=== PATIENT | female | born 1950 | race Two or more races ===

== ENCOUNTER → 2024-03-09 | Outpatient (CLI) | payer MEDICARE, OTHER ==
[2024-03-09 17:08] LABS: INR 0.9 (<1.2); Partial Thromboplastin Time 23.9 sec (22.0-30.0); Prothrombin Time 10.1 sec (10.0-12.5)
[2024-03-09 18:43] LABS: HCT 48.5 % (37.2-46.3); HGB 16.2 g/dL (12.0-15.0); MCH 28.7 pg (27.0-32.0); MCHC 33.4 g/dL (32.0-37.0); Mean Platelet Volume 8.9 FL (9.5-12.2); NRBC Per 100 WBC 0 X 10*3/uL (0.00-0.01); Platelet Count 297 X 10*3/uL (140-440); RBC 5.64 X 10*6/uL (4.10-5.20); RDW 13.3 % (11.5-14.5); WBC 7.33 X 10*3/uL (4.50-10.00)
[2024-03-10 03:44] LABS: ALT 18 U/L (8-44); AST 18 U/L (13-35); Albumin 4.3 g/dL (3.8-4.9); Albumin/Globulin Ratio 1.72 Ratio (1.60-3.17); Alkaline Phosphatase 60 U/L (41-126); BUN/Creat Ratio 25.86 Ratio (12.00-20.00); Blood Urea Nitrogen 18.1 mg/dL (9.0-27.0); Calcium 9.2 mg/dL (8.7-10.3); Carbon Dioxide 23.2 mmol/L (21.6-31.8); Chloride 101 mmol/L (96-109); Globulin 2.5 g/dL (1.6-3.3); Glucose 134 mg/dL (70-110); Potassium 3.9 mmol/L (3.5-5.5); Sodium 139 mmol/L (135-145); Total Bilirubin 0.6 mg/dL (0.3-1.2); Total Protein 6.8 g/dL (6.2-8.2)
[2024-03-10 04:19] LABS: Appearance,Urine Turbid (Clear); Bilirubin,Urine Negative (Negative); Blood,Urine Negative (Negative); Color,Urine Yellow (Yellow); Ketones,Urine Negative (Negative); Nitrite,Urine Negative (Negative); PH, Urine 5.5; Urobilinogen,Urine 0.2 E.U./DL
[2024-03-10 04:30] LABS: Bacteria,Urine None Seen (None Seen)
== END | disposition home or self-care (01) ==
LOC: LABPAT 03-03 14:43
PROVIDERS: ATTEND Orthopaedic Surgery
DX: Z01.812 Encounter for preprocedural laboratory examination (principal); M16.11 Unilateral primary osteoarthritis, right hip; Z22.322 Carrier or suspected carrier of Methicillin resistant Staphylococcus aureus
CPT/HCPCS: 80053; 81001; 85027; 85610; 85730; 86850; 86900; 86901; 87070; 87086

== ENCOUNTER 2024-03-16 08:59 | Day surgery (SDC) | payer MEDICARE, OTHER ==
[2024-03-15] MEDS: GABAPENTIN 300 MG CAP PO PRN (08:22)
[2024-03-15] MEDS: ACETAMINOPHEN TAB 500 MG TAB PO PRN (08:22)
[2024-03-15] MEDS: MELOXICAM 7.5 MG TAB PO PRN (08:23)
[2024-03-15] MEDS: IV FLUID CONTINUATION 1,000 ML IV ONE ×3 (08:30→12:05)
[2024-03-15 08:35] LABS: Glucose,Whole Blood 127 mg/dL (70-110)
[2024-03-15] MEDS: fentaNYL (PF) 50 MCG/ML 2 ML AMP IVP ONE (08:37)
[2024-03-15] MEDS: MIDAZOLAM 2 MG/2 ML VIAL IVP ONE (08:37)
[2024-03-15] MEDS: ONDANSETRON 4 MG/2 ML VIAL IVP ONE (08:45)
--- NOTE | 2024-03-15 08:48 | P.ANPRN ---
Procedure Note - Anesthesia - Nerve Block Performed Right Derick Single Time Out Performed: Yes Date of Procedure: 03/15/24 Procedure Start Time: 08:36 Procedure Stop Time: 08:43 Location of Patient: PreOp Indication: Acute Post-Operative Pain, Requested by Surgeon Sedation Type: Sedate with meaningful contact maintained Preparation: Sterile Prep Position: Supine Needle Types: Pajunk Needle Gauge: 21 Ultrasound used to visualize needle placement: Yes Ultrasound used to observe medication spread: Yes Injectate: 0.5% Ropivacaine (see comment for volume) (15 ml + lidocaine 1% with epi 1/200 K 15 ml) Blood Aspirated: No Pain Paresthesia on Injection Noted: No Resistance on Injection: Normal Image Stored and Saved: Yes Events: Uneventful and Well Tolerated
[2024-03-15] MEDS: LACTATED RINGERS 1,000 ML IV SCH (08:59)
[2024-03-15] MEDS: ceFAZolin 1,000 MG in SODIUM CHLORIDE 0.9% 1,000 ML IRRIGATION ONE (09:20)
[2024-03-15] MEDS: ROPIVACAINE 5 MG/ML 30 ML VIAL MISCELLANE ONE ×2 (09:36→10:29)
--- NOTE | 2024-03-15 10:35 | P.OP ---
Date of Procedure: 03/15/24 Preoperative Diagnosis: Severe osteoarthritis right hip Postoperative Diagnosis: Severe arthritis right hip Procedure(s) Performed: Right total hip arthroplasty with a direct anterior approach Implants: [employer] Polarstem standard size 1with a collar [employer] R3, 3 hole hemispherical acetabular shell, 48 mm [employer] Reflection 6.5 mm cancellus screw, 20 mm 2 [employer] R3, XLPE 20 acetabular liner [employer]hew Oxinium femoral head 32 mm, -3 All components were press-fit. The articulation is Oxinium on polyethylene. Anesthesia: spinal Surgeon: Festus Grigsby [employer] Building Materials Designer #1: Alisson Sandoval Estimated Blood Loss (ml): 300 Pathology: none sent Condition: stable Disposition: PACU Indications for Procedure: After failure of conservative treatment we discussed the surgical and nonsurgical treatment options at length. Patient wishes to proceed with a total hip arthroplasty with a direct anterior approach. Complications specific to this procedure were discussed at length, including but not limited to infection, leg length discrepancy, dislocation, nerve injury, and fracture. Covid-19 was also discussed at length with the patient, and they are aware of the current policies and procedures. The patient was given the option of delaying surgery, but they elect to proceed knowing these risks. Patient is aware of all these complications and informed consent was obtained Operative Findings: The operative findings are consistent with severe osteoarthritis of the right hip Description of Procedure: The patient was seen and evaluated in the preoperative area and the consent was reviewed. The operative site was marked with a skin marker. The patient verified the procedure and operative site. A JEANNA block was placed by anesthesia in the preoperative area. The patient was then brought to the operating room and given preoperative antibiotics intravenously. 1 g of Tranexamic acid was also given intravenously. A spinal anesthetic was administered by the anesthesia department. The patient was then placed on the Panaca table with the bony prominences well-padded. The hip area was then prepped with a ChloraPrep solution and draped in the usual sterile fashion. A universal timeout was then performed, which confirmed the patient's name, surgical site, ALLERGIES, and procedure being performed on the consent. Next the incision site was located at 1 cm distal and 4 cm lateral to the anterior superior iliac spine. The skin and subcutaneous tissues were sharply incised. Incision was carefully dissected down to the fascia overlying the tensor fascia pablo muscle. This fascia was then incised in line with the muscle fibers. Care was taken to stay laterally in order to avoid injuring the lateral femoral cuta neous nerve. Next, using blunt finger dissection, the tensor fascia pablo muscle was dissected off its investing fascia. The muscle was then carefully retracted laterally with a cobra retractor over the lateral neck of the femur. Next, the circumflex vessels were identified and cauterized using the Aquamantis device. The anterior hip capsule was then exposed. The capsule was then opened and an inverted T fashion. The retractors were then placed intracapsularly. The retractors were maintained intracapsular throughout the procedure. The proximal femur was then visualized. Fluoroscopic x-rays were then taken in order to evaluate the preoperative leg lengths. A small amount of traction was placed on the leg. The femoral neck was then osteotomized at the appropriate level above the lesser trochanter. A small wedge of bone was then removed from the remaining femoral head. Next, using a corkscrew the femoral head was removed from the acetabulum. On gross visual inspection, the femoral head had complete loss of articular cartilage and multiple periarticular osteophytes. The femoral head was then measured. Attention was then turned to the acetabulum. The acetabulum was exposed and any remaining labrum was excised. Sequential reaming of the acetabulum was performed using fluoroscopic guidance until there was a good bed of bleeding cancellus bone. When the appropriate size was reached, a trial was then placed. The position and fit of the trial was checked with fluoroscopy. The trial was then removed. Then, using fluoroscopic guidance, the final implant was impacted at 20 of anteversion and 40 of abduction, and fully seated in the acetabulum. 2 screws were then placed in the acetabulum. Again fluoroscopy was used to check position of the screws. Next, the liner was then impacted, with a 20 elevated liner located in the anterior superior quadrant. Component locking was confirmed. Attention was then directed to the femur. With the aid of the Panaca table, the femur was externally rotated to approximately 130, extended, and adducted under the opposite leg. A side hook was then placed under the proximal femur, and the side hook elevator was used to elevate the proximal femur while releasing the capsule. Retractors were then placed. A capsular release was performed, as well as a release of the conjoined tendon, which afforded excellent visuali zation of the proximal femur. Next, a box osteotome was used to lateralize the proximal femur. A scrap handler was then used to locate the femoral canal. Sequential broaching was then performed with appropriate size which afforded excellent fixation in the proximal femur. A trial was then placed with appropriate head and neck, and the hip was gently reduced with the aid of the Panaca table. Fluoroscopy was then used to check position of the components, as well as to evaluate the leg lengths and offset. The leg lengths and offset were measured as closely as possible to ensure stability of the hip. The hip was then gently dislocated and the trials were then removed. Final implants were then impacted and the hip was again reduced. Final fluoroscopic x-rays confirmed that the components were in anatomic position. The leg lengths and offset were measured and were found to coincide with the trial measurements. The hip was also taken through range of motion, and found to be stable. The hip was then copiously irrigated with antibiotic solution with pulsatile lavage. The hip was then irrigated with Irrisept solution. The soft tissues were then injected with a ropivacaine solution. A second dose of 1 g of Tranexamic acid was also given intravenously. The fascia was then closed with 2-0 strata fix suture. The subcutaneous tissue was closed with 3-0 Vicryl. The subcuticular tissue was closed with 3-0 strata fix suture. The skin was then closed with Exofin skin glue. After the glue and dried, and Optifoam silver impregnated dressing was applied. The patient was then transferred to the recovery room in stable condition. The construction management assistant RENATE Rizzo was required due to the complexity of surgery, and the need for skilled chef assistant for positioning, draping, exposure, retraction, and closure of the wound.
--- NOTE | 2024-03-15 10:57 | FL ---
EXAMINATION TYPE: FL guidance operating room, XR Hip Limited RT Intraoperative/procedural fluoroscopi c services were provided. Total fluoroscopy time is 1.08 seconds with a total of 3 submitted images t o PACS. Please see the operative/procedural note for further details. DAP: 3.7080 Gycm2
[2024-03-15] MEDS: HYDROmorphone 0.5 MG/0.5 ML SYRINGE IVP PRN ×2 (11:56→22:59)
[2024-03-15] MEDS: SODIUM CHLORIDE 0.9% 1,000 ML IV SCH (12:04)
[2024-03-15] MEDS: SODIUM CHLORIDE 0.9% 1,000 ML IV ONE ×2 (12:06→13:37)
--- NOTE | 2024-03-15 12:22 | XR ---
EXAMINATION TYPE: XR Hip Limited AP view RT DATE OF EXAM: 03/15/2024 Comparison: None Clinical History: 73-year-old female Status post hip surgery, assess surgical alignment Findings: Image shows placement of right total hip arthroplasty. Acetabular cup and femoral stem components of the prosthesis appear well seated without evidence periprosthetic fracture. Alignment grossly anatomi c. Small amount of soft tissue air related to recent operation. Impression: Uncomplicated postoperative appearance right total hip arthroplasty.
[2024-03-15] MEDS: GLYCOPYRROLATE 0.2 MG/ML 2 ML VIAL IVP STA (12:47)
[2024-03-15] MEDS: ONDANSETRON 4 MG/2 ML VIAL IVP PRN (14:04)
[2024-03-15] MEDS: DEXAMETHASONE SOD PHOSPHATE 4 MG/ML 1 ML VIAL IV ONE (15:19)
[2024-03-15] MEDS: METOPROLOL SUCCINATE (ER) 25 MG TAB.ER.24H PO SCH (15:19)
[2024-03-15] MEDS: HYDROcodone/APAP 7.5-325MG 1 EACH TAB PO PRN (16:47)
[2024-03-15 17:00] LABS: Glucose,Whole Blood 188 mg/dL (70-110)
[2024-03-15] MEDS: INSULIN ASPART (NovoLOG) 100 UNIT/ML VIAL SQ SCH (17:38)
[2024-03-15 19:59] VITALS: RESP 16
--- NOTE | 2024-03-15 20:10 | CONS ---
CONSULTATION REASON FOR CONSULTATION: Advice regarding diabetes mellitus and other medical issues requested by Orthopedics. HISTORY OF PRESENT ILLNESS: This 73-year-old woman with a past medical history of multiple problems including diabetes, hypertension, underwent right total hip joint arthroplasty. There is no history of fever, rigors, headache, loss of consciousness or seizures. PAST MEDICAL HISTORY: Diabetes mellitus, hypertension, DJD. Rest of history in chart is also reviewed. HOME MEDICATIONS: Reviewed and include hydrochlorothiazide. Rest of medications and doses reviewed. FAMILY HISTORY: History of DVT. SOCIAL HISTORY: No history of smoking or alcohol. REVIEW OF SYSTEMS: Fourteen-point review is negative except as mentioned earlier. PHYSICAL EXAMINATION: VITAL SIGNS: Pulse is 65, blood pressure ntd respirations 18. HEENT: Conjunctivae normal. NECK: No JVD. No thyromegaly. CARDIOVASCULAR: S1, S2. RESPIRATIONS: Breath sounds diminished at the bases. ABDOMEN: Soft, nontender. LEGS: Status post right total knee arthroplasty. NERVOUS SYSTEM: No focal deficits. LABORATORY DATA: Glucose 127. ASSESSMENT: 1. Status post right total knee arthroplasty. 2. Diabetes. 3. Hypertension. 4. History of DJD. 5. Family history of DVT. RECOMMENDATIONS AND DISCUSSION: This 73-year-old presented with multiple medical problems. We will monitor the patient closely. Continue the current medications. Monitor blood sugars closely. I would also recommend DVT prophylaxis with either Lovenox or Xarelto. We will continue to monitor. Guarded prognosis. Further recommendations to follow. MMODL / IJN: [id number] / PER
[2024-03-15 20:37] LABS: Glucose,Whole Blood 201 mg/dL (70-110)
[2024-03-15] MEDS: ASPIRIN 325 MG TAB PO SCH (21:09)
[2024-03-15] MEDS: ACETAMINOPHEN TAB 325 MG TAB PO PRN (21:09)
[2024-03-15] MEDS: SENNOSIDES-DOCUSATE SODIUM 1 EACH TAB PO SCH (21:09)
[2024-03-16 06:04] LABS: Glucose,Whole Blood 141 mg/dL (70-110)
[2024-03-16 07:44] VITALS: BP 129/64; PULSE 77; TEMP 98.5
[2024-03-16] MEDS: FOLIC ACID-VIT B COMPLEX-VIT C 1 CAP PO SCH (08:16)
[2024-03-16] MEDS: ZINC SULFATE 220 MG CAP PO SCH (08:16)
[2024-03-16] MEDS: hydroCHLOROthiazide 12.5 MG CAP PO SCH (08:16)
[2024-03-16] MEDS: amLODIPine 5 MG TAB PO SCH (08:16)
[2024-03-16] MEDS: MULTIVITAMINS, THERA 1 EACH TAB PO SCH (08:16)
[2024-03-16] MEDS: MAGNESIUM OXIDE 400 MG TAB PO SCH (08:16)
[2024-03-16] MEDS: CHOLECALCIFEROL 125 MCG (5000 IU) TABLET PO SCH (08:16)
[2024-03-16] MEDS: MAGNESIUM HYDROXIDE 2,400 MG/30 ML CUP PO PRN (08:28)
[2024-03-16 08:42] LABS: Basophils # (A) 0.03 X 10*3/uL (0.00-0.10); Basophils % (A) 0.3 %; Eosinophils # (A) 0.03 X 10*3/uL (0.04-0.35); Eosinophils % (A) 0.3 %; Lymphocytes # (A) 0.99 X 10*3/uL (0.90-5.00); Lymphocytes % (A) 11.5 %; MCH 28.3 pg (27.0-32.0); MCHC 31.7 g/dL (32.0-37.0); MCV 89.1 FL (80.0-97.0); Mean Platelet Volume 9.5 FL (9.5-12.2); Monocytes # (A) 1.09 X 10*3/uL (0.20-1.00); Monocytes % (A) 12.6 %; NRBC Per 100 WBC 0 X 10*3/uL (0.00-0.01); Neutrophils # (A) 6.45 X 10*3/uL (1.80-7.70); Neutrophils % (A) 74.7 %; Platelet Count 236 X 10*3/uL (140-440); RDW 13.5 % (11.5-14.5); WBC 8.64 X 10*3/uL (4.50-10.00)
[2024-03-16 08:57] LABS: BUN/Creat Ratio 23.67 Ratio (12.00-20.00); Blood Urea Nitrogen 14.2 mg/dL (9.0-27.0); Calcium 8.1 mg/dL (8.7-10.3); Carbon Dioxide 22.8 mmol/L (21.6-31.8); Chloride 106 mmol/L (96-109); Glucose 151 mg/dL (70-110); Potassium 3.5 mmol/L (3.5-5.5); Sodium 139 mmol/L (135-145)
[~2024-03-16 08:59] MED LIST: DEXTROSE 50% SYRINGE 50 ML IVP PRN; HYDROcodone/APAP 7.5-325MG 1 EACH TAB PO PRN; HYDROmorphone 0.5 MG/0.5 ML SYRINGE IVP PRN; LIDOCAINE 1% (10MG/ML) FOR IV START INTRADERMA PRN; LIDOCAINE 1%-EPI 1:100,000 20 ML VIAL ONE; MIDAZOLAM 2 MG/2 ML VIAL IV PRN; MIDAZOLAM 2 MG/2 ML VIAL ONE; NALOXONE 0.4 MG/ML 1 ML VIAL IV PRN; PHENYLEPHRINE-0.9% NACL SYG 1,000 MCG/10 ML SYRINGE ONE; PROPOFOL 10 MG/ML 20 ML VIAL IV ONE; ROPIVACAINE 5 MG/ML 30 ML VIAL ONE; TRANEXAMIC 1,000 MG/100ML-NACL 1,000 MG in SALINE 1 100ML.BAG IVPB PRN; TRANEXAMIC 1,000 MG/100ML-NACL PREMIX BAG ONE; fentaNYL (PF) 50 MCG/ML 2 ML AMP IVP PRN; fentaNYL (PF) 50 MCG/ML 2 ML AMP ONE
[2024-03-16] MEDS ORDERED: NON FORMULARY DRUG (Biotin [Biotin Disolve] 5,000 MCG Tablet) PO SCH (09:00)
--- NOTE | 2024-03-16 10:42 | P.DS ---
Providers Date of admission: 03/15/24 08:57 Expected date of discharge: 03/16/24 Attending physician: Festus Grigsby Consults: 03/15/24 08:57 Consult Physician Routine Consulting Provider: Esperanza King Consult Reason/Comments: medical management Do you want consulting provider notified?: Yes Primary care physician: Gabriel Perkins - Discharge Diagnosis(es) (1) Osteoarthritis of right hip Current Visit: Yes Status: Acute (2) S/P total right hip arthroplasty Current Visit: Yes Status: Acute Hospital Course: This is a 73-year-old female with known history of degenerative arthritis of the right hip. The patient presented for evaluation as an outpatient. After discussion and consideration patient elects to proceed with total hip arthroplasty. The patient is seen preoperatively by Dr. Grigsby and medically cleared for surgery by their primary care physician. Patient is admitted to [facility] on 03/15/2024 for total hip arthroplasty. The procedure is performed without complication or sequelae. The patient is doing well postoperatively. Labs and vital signs are stable on day of discharge. On day of discharge patient's hip incision is healing well. There is minimal erythema. There is no drainage noted at this time. There is minimal soft tissue swelling to the hip and thigh. Patient has full foot and ankle motion without difficulty or pain. Calf is soft and nontender to palpation. Neurovascular status to the right lower extremity is intact. Patient is discharged home in good condition. Please see med rec for accurate list of home medications. Plan - Discharge Summary Discharge Rx Participant: Yes New Discharge Prescriptions: New Aspirin 325 mg PO BID #60 tab HYDROcodone/APAP 7.5-325MG [[place] 7.5-325] 1 - 2 tab PO Q6H PRN #32 tab PRN Reason: Pain Sennosides [Senokot] 2 tab PO DAILY PRN #60 tablet PRN Reason: Constipation No Action Naproxen Sodium [Aleve] 220 mg PO BID PRN PRN Reason: Pain Multivitamins, Thera [Multivitamin (formulary)] 1 tab PO DAILY Metoprolol Succinate (ER) [Toprol Xl] 12.5 mg PO DAILY Aspirin 81 mg PO DAILY Amoxic-Pot Clav 875-125Mg [Augmentin 875-125] 0.5 tab PO DAILY estradioL [Lyllana 0.375 mg Patch] 1 patch TOPICAL MOTH Super B Complex 1 tab PO DAILY Psyllium Husk [Metamucil] 0.4 gm PO DAILY L.acidoph,Paracasei, B.lactis [Probiotic] 1 each PO DAILY Glucosamine/Chondro Briggs A [Cosamin Ds Tablet] 1 each PO DAILY Elderberry Fruit [Tyreebucus Karlberry Orig Syrup] 5 ml PO DAILY Dhea Cream TOPICAL DAILY Cranberry Fruit Concentrate [Azo Cranberry] 250 mg PO DAILY Cinnamon Bark [Cinnamon] 1,200 mg PO DAILY Biotin [Biotin Disolve] 5,000 mcg PO DAILY Zinc Gluconate [Zinc] 30 mg PO DAILY hydroCHLOROthiazide [Hydrodiuril] 12.5 mg PO DAILY Cholecalciferol [Vitamin D3 (125 Mcg = 5000 Iu)] 125 mcg PO DAILY amLODIPine [Norvasc] 5 mg PO DAILY Turmeric Root Extract [Turmeric] 1,000 mg PO DAILY Testosterone Cream 0.7 mg TRANSDERM DAILY Calhoun-3/Dha/Epa/Fish Oil [Calhoun-3 Fish Oil 1,000 mg Sfgl] 1 each PO DAILY Magnesium Carb,Citrate,Oxide [Magnesium Complex] 300 mg PO DAILY Lutein 10 mg PO DAILY Ronak Seed 1 cap PO DAILY Bergamot Extract [Bergacor] 500 mg PO DAILY Discharge Medication List Amoxic-Pot Clav 875-125Mg [Augmentin 875-125] 0.5 tab PO DAILY 03/14/24 [History] Aspirin 81 mg PO DAILY 03/14/24 [History] Bergamot Extract [Bergacor] 500 mg PO DAILY 03/14/24 [History] Biotin [Biotin Disolve] 5,000 mcg PO DAILY 03/14/24 [History] Ronak Seed 1 cap PO DAILY 03/14/24 [History] Cholecalciferol [Vitamin D3 (125 Mcg = 5000 Iu)] 125 mcg PO DAILY 03/14/24 [History] Cinnamon Bark [Cinnamon] 1,200 mg PO DAILY 03/14/24 [History] Cranberry Fruit Concentrate [Azo Cranberry] 250 mg PO DAILY 03/14/24 [History] Dhea Cream TOPICAL DAILY 03/14/24 [History] Elderberry Fruit [Sambucus Karlberry Orig Syrup] 5 ml PO DAILY 03/14/24 [History] Glucosamine/Chondro Briggs A [Cosamin Ds Tablet] 1 each PO DAILY 03/14/24 [History] L.acidoph,Paracasei, B.lactis [Probiotic] 1 each PO DAILY 03/14/24 [History] Lutein 10 mg PO DAILY 03/14/24 [History] Magnesium Carb,Citrate,Oxide [Magnesium Complex] 300 mg PO DAILY 03/14/24 [History] Metoprolol Succinate (ER) [Toprol Xl] 12.5 mg PO DAILY 03/14/24 [History] Multivitamins, Thera [Multivitamin (formulary)] 1 tab PO DAILY 03/14/24 [History] Naproxen Sodium [Aleve] 220 mg PO BID PRN 03/14/24 [History] Calhoun-3/Dha/Epa/Fish Oil [Calhoun-3 Fish Oil 1,000 mg Sfgl] 1 each PO DAILY 03/14/24 [History] Psyllium Husk [Metamucil] 0.4 gm PO DAILY 03/14/24 [History] Super B Complex 1 tab PO DAILY 03/14/24 [History] Testosterone Cream 0.7 mg TRANSDERM DAILY 03/14/24 [History] Turmeric Root Extract [Turmeric] 1,000 mg PO DAILY 03/14/24 [History] Zinc Gluconate [Zinc] 30 mg PO DAILY 03/14/24 [History] amLODIPine [Norvasc] 5 mg PO DAILY 03/14/24 [History] estradioL [Lyllana 0.375 mg Patch] 1 patch TOPICAL MOTH 03/14/24 [History] hydroCHLOROthiazide [Hydrodiuril] 12.5 mg PO DAILY 03/14/24 [History] Aspirin 325 mg PO BID #60 tab 03/16/24 [Rx] HYDROcodone/APAP 7.5-325MG [[place] 7.5-325] 1 - 2 tab PO Q6H PRN #32 tab 03/16/24 [Rx] Sennosides [Senokot] 2 tab PO DAILY PRN #60 tablet 03/16/24 [Rx] Follow up Appointment(s)/Referral(s): [facility] [NON-STAFF] - As Needed (walker) [facility] [NON-STAFF] - As Needed Festus Grigsby DO [Doctor of Osteopathic Medicine] - 03/28/24 2:00 pm Activity/Diet/Wound Care/Special Instructions: Weightbearing as tolerated with walker. Leave dressing intact. Dressing may be removed by home care nurse or by patient in 7 days. Then change dressing twice daily until follow up. May shower with initial dressing intact and after removal. If dressing become saturated, please remove. Please take aspirin 325mg twice daily for 30 days to prevent blood clots. Recommend use of compression stockings daily until follow up to help prevent swelling and blood clots. May remove at night before sleeping. Please follow[facility]up with [facility] 2 weeks and call with any questions or concerns, . Discharge Disposition: HOME WITH HOME HEALTH SERVICES
[2024-03-16 11:18] LABS: Glucose,Whole Blood 151 mg/dL (70-110)
--- NOTE | 2024-03-16 23:34 | PN ---
PROGRESS NOTE DATE OF SERVICE: 03/16/2024 SUBJECTIVE: This is a 73-year-old woman who was admitted after right total knee arthroplasty, is improving significantly. No chest pain, no palpitations, no fever. The patient has urinary symptoms evaluated by Urology previously. OBJECTIVE: VITAL SIGNS: Pulse is 77, blood pressure 110/62, respirations 16. CHEST: Clear to auscultation. CARDIOVASCULAR: S1, S2. ABDOMEN: Soft, nontender. LEGS: Status post surgery. LABORATORY DATA: Reviewed. ASSESSMENT: 1. Status post right total knee arthroplasty. 2. Diabetes mellitus type 2. 3. Urinary retention, chronic, intermittent. 4. Hypertension. 5. History of DJD. 6. Family history of DVT. RECOMMENDATIONS: Recommended to continue current management, continue symptomatic treatment, DVT prophylaxis per Orthopedic surgery. Otherwise, recommend urology evaluation outpatient and followup. Further recommendations to follow. MMODL / IJN: [id number] /
== END 2024-03-16 13:20 | disposition home health service (06) ==
LOC: 4SSUR 08:59 → OR 08:59
PROVIDERS: ATTEND Orthopaedic Surgery
DX: M16.11 Unilateral primary osteoarthritis, right hip (principal); E11.9 Type 2 diabetes mellitus without complications; E07.9 Disorder of thyroid, unspecified; I10 Essential (primary) hypertension; Z79.890 Hormone replacement therapy; Z79.899 Other long term (current) drug therapy; Z82.49 Family history of ischemic heart disease and other diseases of the circulatory system; Z79.84 Long term (current) use of oral hypoglycemic drugs
CPT/HCPCS: 97162; 97535; 97166; 64447; 80048; 85025; 83036; 73501; 27130; C1776; J2250; J0690 ×3; J2405; J3010; J2795; J2704; J1170 ×2; J2371